=== PATIENT | female | born 1945 | race Caucasian/White ===

== ENCOUNTER 2017-05-07 06:31 | Day surgery (SDC) | payer MEDICARE, BC ==
[2017-05-01 10:25] LABS: BASOPHILS 1.3 %; BASOPHILS ABSOLUTE 0.05 10/3/uL (0.0-0.16); EOSINOPHILS ABSOLUTE 0.19 10/3/uL (0.0-0.53); HEMATOCRIT 40.5 % (36.0-48.0); HEMOGLOBIN 13.3 g/dL (12.0-16.0); LYMPHOCYTES ABSOLUTE 1.03 10/3/uL (0.67-4.30); MANUAL DIFF NO %; MEAN CORPUS HGB CONC 32.8 g/dL (32.0-36.0); MEAN CORPUSCULAR HEMOGLOB 30.1 pg (26.0-34.0); MEAN CORPUSCULAR VOLUME 91.6 fL (80-100); MEAN PLATELET VOLUME 9.4 fL (9.2-13.0); MONOCYTES 13.1 %; NEUTROPHILS 53.6 %; NEUTROPHILS ABSOLUTE 2.04 10/3/uL (2.02-8.40); PLATELET COUNT 272 10/3/uL (150-400); RED CELL COUNT 4.42 10/6/uL (4.0-5.6); WHITE BLOOD CELLS 3.8 10/3/uL (4.5-10.5)
[2017-05-01 10:38] LABS: BUN (BLOOD UREA NITROGEN) 11 MG/DL (6-23); CALCIUM, SERUM 9.5 MG/DL (8.5-10.4); CHLORIDE, SERUM 106 MMOL/L (96-112); CO2 (CARBON DIOXIDE) 35 MMOL/L (24-34); CREATININE 0.66 MG/DL (0.55-1.02); GFR AFRICAN AMERICAN 104 ML/MIN (>=60); GFR NON AFRICAN AMERICAN 90 ML/MIN (>=60); GLUCOSE, SERUM 53 MG/DL (60-99); POTASSIUM, SERUM 4.4 MMOL/L (3.5-5.3); SODIUM, SERUM 141 MMOL/L (135-148)
--- NOTE | ~2017-05-07 | OP ---
Record Of Operation [facility] [address] [place]. [address] NAME: RONDA RUIZ : 49 STATUS : [facility]#: [id number] AGE: 71 ADM/REG DATE : 05/07/17 MR#: [id number] REPORT SERV DATE: 05/08/17 DICTATED BY: ARPAN DIALLO DATE: 05/08/17 REPORT STATUS : Draft TRANSCRIBED BY: MODL DATE: 05/08/17 DATE OF PROCEDURE: 05/07/2017 PREOPERATIVE DIAGNOSIS: Ventral hernia. POSTOPERATIVE DIAGNOSIS: Ventral hernia. OPERATION PERFORMED: Laparoscopic repair of the ventral hernia. SURGEON: Arpan Diallo M.D. COMPUTING ARCHITECT: Magdiel Conley MD. ESTIMATED BLOOD LOSS: Less than 10 mL. IV FLUIDS: Adequate. INDICATION FOR PROCEDURE: Ms Ruiz is a 71-year-old female, who had a lower midline ventral hernia, requesting repair, after discussion of surgical options, she opted for a laparoscopic approach. DESCRIPTION OF OPERATION: After appropriate sedation, the patient was prepped and draped in proper sterile fashion. A 10 mm Optiview trocar was used to enter the abdomen in the left upper quadrant. The abdomen was insufflated to 15 mmHg. We then placed two left lower quadrant 5-mm trocars under direct visualization. We visualized the defect, there was large amount of omentum entering the defect. This was carefully dissected out. There was also noted to be a second trocar hernia in the right upper quadrant. Once the contents of the hernia were reduced, we then visualized a 3 cm defect. I felt like this could be approximated to the midline. After a stab incision just above the hernia sac, the fascia was approximated using 0 Vicryl suture. This gave us good approximation of the fascia. A piece of Bard Ventralight mesh was then placed into the abdomen. The sutures were placed at the 10 and 12 o'clock positions using 0 Nurolon suture. This gave us good vertical coverage of the previous defect. It was then circumferentially tacked to the abdominal wall using the Pro Tacker giving us wide coverage. We then placed 0 Nurolon suture at the 3 and 9 o'clock positions. We then looked at the 1 cm defect in the right upper quadrant. This was closed using a suture passer using 0 Vicryl suture. We then visualized the abdominal wall. There was no evidence of bleeding. The mesh was nicely apposed to the abdominal wall. The trocars were removed under direct visualization. There was no evidence of bleeding from the abdominal wall. The abdomen was then desufflated. The skin was closed using interrupted 3- 0 Vicryl suture. Steri-Strips and dressings were then placed. The patient was taken to the recovery room in satisfactory condition. KAELYN/ALEX Record Of [address] [address] NAME: RONDA RUIZ : 49 STATUS : [facility]#: [id number] AGE: 71 ADM/REG DATE : 05/07/17 MR#: [id number] REPORT SERV DATE: 05/08/17 DICTATED BY: ARPAN DIALLO DATE: 05/08/17 REPORT STATUS : Draft TRANSCRIBED BY: ALEX DATE: 05/08/17 Arpan Diallo M.D. / [id number] CC: Judd Gutierrez M.D.
[~2017-05-07 06:31] MED LIST: ACT300 PO
== END 2017-05-07 13:03 | disposition home or self-care (01) ==
LOC: SDC 06:31
PROVIDERS: Specialist
PROC: 0WUF4JZ Supplement Abdominal Wall with Synthetic Substitute, Percutaneous Endoscopic Approach (ICD-10-PCS; principal; 2017-05-07 08:15)
DX: K43.9 Ventral hernia without obstruction or gangrene (principal); K74.3 Primary biliary cirrhosis; Z79.899 Other long term (current) drug therapy; Z90.49 Acquired absence of other specified parts of digestive tract; Z90.710 Acquired absence of both cervix and uterus; Z98.890 Other specified postprocedural states
CPT/HCPCS: 80048; 85025; 87641; 93005; A9270-GY; C1713; C1781; J0690; J2250; J2405; J2710; J2795; J3010